=== PATIENT | female | born 1960 | race Caucasian/White ===

== ENCOUNTER 2022-06-07 15:15 | Emergency (ER) | payer OTHER, SELFPAY ==
[2022-06-07 15:28] VITALS: BP 142/77; PULSE 80; RESP 16; TEMP 36.7; O2SAT 97
--- NOTE | 2022-06-07 15:45 | ED.ALLEREA ---
HPI - Allergic Reaction General Chief complaint: Abdominal Pain Stated complaint: Rash/Abdominal Pain/Nausea Time Seen by Provider: 06/07/22 15:45 Source: patient and RN notes reviewed Mode of arrival: ambulatory Limitations: no limitations History of Present Illness HPI narrative: 61-year-old female presented for complaint of itching over body surface without a rash. Denies changes to lotion, soap, detergent etc. She endorses 1 week ago she started with nausea, vomiting, and epigastric pain. She states this improved and then 3 days ago similar symptoms started again. She has not had any vomiting for 24 hours. She endorses epigastric pain is about a 2 out of 10. Tolerating PO. She denies cough, shortness of breath, fevers or chills. She took a negative home COVID test 2 days ago. Denies sick contacts. Related Data Home Medications Medication Instructions Recorded Confirmed albuterol sulfate 90 mcg/actuation 2 puff inhalation Q4-6H PRN 06/07/22 06/07/22 aerosol inhaler Shortness Of Breath Or Wheezing amlodipine 10 mg tablet 10 mg PO DAILY 06/07/22 06/07/22 buspirone 15 mg tablet 15 mg PO BID 06/07/22 06/07/22 citalopram 40 mg tablet 40 mg PO DAILY 06/07/22 06/07/22 fluticasone propionate 100 2 inh inhalation DAILY 06/07/22 06/07/22 mcg/actuation blister powder for inhalation (Flovent Diskus) hydroxyzine HCl 25 mg tablet 25 mg PO DAILY 06/07/22 06/07/22 lisinopril 40 mg tablet 40 mg PO DAILY 06/07/22 06/07/22 metoprolol tartrate 50 mg tablet 50 mg PO BID 06/07/22 06/07/22 Allergies Allergy/AdvReac Type Severity Reaction Status Date / Time No Known Allergies Allergy Verified 06/07/22 15:43 Review of Systems Review of Systems: CONSTITUTIONAL: Denies body aches, fever, chills ENT: Denies rhinorrhea, congestion CARDIOVASCULAR: Denies chest pain, palpitations, or edema. RESPIRATORY: Denies cough or dyspnea. GASTROINTESTINAL: Endorses abdominal pain, Denies nausea, vomiting, diarrhea, hematochezia, melena, hematemesis GENITOURINARY: Denies dysuria, hematuria, or CVA tenderness. SKIN: Denies rash, reports itching MUSCULOSKELETAL: Denies back pain, joint pain, or myalgia. NEUROLOGIC: Denies headache, numbness, tingling, or weakness. All systems reviewed & are unremarkable except as noted in HPI and below PMFSH Comments At time of signature, I have reviewed and agree with nursing past medical, surgical, social and family history unless otherwise noted. Please see nursing chart for further information. There is no relevant family history pertinent to the presenting complaint Exam Narrative: GENERAL: Well-appearing, and in no acute distress. EYES: EOMI. Conjunctivae normal. ENT: Mucous membranes pink and moist. CHEST: Clear to auscultation. HEART: Regular rate and rhythm. No murmur appreciated. Normal peripheral pulses. ABDOMEN: abd soft, nondistended, normal active bowel sounds. Tender to epigastric area with palpation; No guarding, rebound tenderness, asymmetry EXTREMITIES: Normal range of motion. No edema. SKIN: Warm, dry, no rash. Petechiae noted to bilateral arms and neck consistent with scratching. Capillary refill normal. NEURO: Alert and oriented x3. PSYCH: Normal affect. Course Course Emergency Course: Patient is aware of diagnosis, understands and agrees to treatment plan. Anticipatory guidance given. Patient agrees to follow-up as directed and is aware of reasons to seek care at the emergency department. Portions of this record may have been created with voice recognition software Level of Care: Express Care Visit Vital Signs Vital signs: Vital Signs Temperature 98.1 F 06/07/22 15:28 Pulse Rate 80 06/07/22 15:28 Respiratory Rate 16 06/07/22 15:28 Blood Pressure 142/77 H 06/07/22 15:28 Pulse Oximetry 97 06/07/22 15:28 Oxygen Delivery Room Air 06/07/22 15:28 Temperature 98.1 F 06/07/22 15:28 Pulse Rate 80 06/07/22 15:28 Respiratory Rate 16 05/25
== END 2022-06-07 16:00 | disposition home or self-care (01) ==
PROVIDERS: Emergency Provider Nurse Practitioner Family; PCP Family Medicine
DX: L29.9 Pruritus, unspecified (principal); R10.13 Epigastric pain
CPT/HCPCS: 99203; G0463

== ENCOUNTER 2025-06-01 13:43 | Emergency (ER) | payer OTHER, SELFPAY ==
[2025-06-01 13:45] VITALS: BP 165/86; PULSE 128; RESP 20; TEMP 36.4; O2SAT 97
--- NOTE | 2025-06-01 13:51 | ED.SKABFB ---
HPI - Skin/Abscess/Foreign Bdy General Chief complaint: Skin/Abscess/Foreign Body Stated complaint: Rash Time Seen by Provider: 06/01/25 13:51 Source: patient, RN notes reviewed and old records reviewed Mode of arrival: ambulatory Limitations: no limitations History of Present Illness HPI narrative: 64 year olf female presents to [facility] care with complaints of generalized rash for the past 2 days with increased itching. Family reports that patient has had rash for about a month and patient does have hydroxyzine from [facility] in April for urticaria rash, Patient reports that she has history of psoriasis. Rash areas noted on arms and legs mainly with some healing sores on forearms noted from scratching, Patient reports no new soaps, medications, foods, or laundry products. Patient is poor historian.Patient reports that she has taken Zyrtec, Pepcid, and Hydroxyzine. MD complaint: rash Onset (ago): day(s) (increased symptoms reported for 2 days) Location: generalized Severity: moderate Quality: pruritic Treatments prior to arrival: other (zyrtec, Pepcid taken daily and some hydrozyzine) Related Data Home Medications ?Medication ?Instructions ?Recorded ?Confirmed ?Last Taken ?Type albuterol sulfate 90 mcg/actuation 2 puff inhalation Q4-6H PRN 06/07/22 06/07/22 Unknown History aerosol inhaler Shortness Of Breath Or Wheezing amlodipine 10 mg tablet 10 mg PO DAILY 06/07/22 06/07/22 Unknown History buspirone 15 mg tablet 15 mg PO BID 06/07/22 06/07/22 Unknown History citalopram 40 mg tablet 40 mg PO DAILY 06/07/22 06/07/22 Unknown History fluticasone propionate 100 2 inh inhalation DAILY 06/07/22 06/07/22 Unknown History mcg/actuation blister powder for inhalation (Flovent Diskus) hydroxyzine HCl 25 mg tablet 25 mg PO DAILY 06/07/22 06/07/22 Unknown History lisinopril 40 mg tablet 40 mg PO DAILY 06/07/22 06/07/22 Unknown History citalopram 20 mg tablet mg 06/01/25 Unknown History rosuvastatin 10 mg tablet mg 06/01/25 Unknown History Allergies Allergy/AdvReac Type Severity Reaction Status Date / Time No Known Allergies Allergy Verified 06/01/25 13:44 Review of Systems Review of Systems: CONSTITUTIONAL: Denies fever, chills, or sweats. CARDIOVASCULAR: Denies chest pain, palpitations, or edema. RESPIRATORY: Denies cough or dyspnea.reports no increased respiratory difficulty or any difficulty swallowing SKIN: Reports generalized rash which is itchy, mainly noted on arms and legs with some healing sores on forearms from scratching MUSCULOSKELETAL: Denies joint pain or myalgia. NEUROLOGIC: Denies headache, numbness, or weakness. All systems reviewed & are unremarkable except as noted in HPI and below PMFSH Past Medical History Medical History (Updated 06/02/25 @ 10:55 by Amy Soares NP) GERD (gastroesophageal reflux disease) Psoriasis Anxiety and depression Elevated cholesterol Hypertension Social History Social History (Updated 06/02/25 @ 10:42 by Amy Soares NP) Smoking status: Former smoker Alcohol intake: unknown Substance use: unknown Living arrangements: with family Gender identity (if verbalized by the patient): Female Comments At time of signature, agree with nursing past medical, surgical, social and family history. There is no relevant family history pertinent to the presenting complaint Exam Narrative: GENERAL: Well-appearing, well-nourished, and in no acute distress. HEAD: Normocephalic, atraumatic. EYES: PERRLA, conjunctivae clear, and EOMI. ENT: Mucous membranes moist. Oropharynx without edema, erythema or lesions. NECK: Supple. No lymphadenopathy CHEST: Clear to auscultation. No respiratory distress. no acute cough or tachypnea SAO2 97% on room air HEART: Regular rate and rhythm some tachycardia noted regular with no chest pain or pressure reported SKIN: Warm, dry.? Patches of raised erythema which is pruritic, noted especially on lower legs and arms with healing areas on arms from scratching, no linear areas no rash noted to hands or between fingers. NEURO:? Alert and oriented x3. PSYCH: Normal mood and affect anxious Course Course Emergency Course: Patient is aware of diagnosis, understands and agrees to treatment plan.? Anticipatory guidance given.? Patient agrees to follow-up as directed and is aware of reasons to seek care at the emergency department. Portions of this record may have been created with voice recognition software Level of Care: Express Care Visit Vital Signs Vital signs: Vital Signs Temperature 36.4 C L 06/01/25 13:45 Pulse Rate 128 H 06/01/25 13:45 Respiratory Rate 20 06/01/25 13:45 Blood Pressure 165/86 H 06/01/25 13:45 Pulse Oximetry 97 06/01/25 13:45 Oxygen Delivery Room Air 06/01/25 13:45 Temperature 36.4 C L 06/01/25 13:45 Pulse Rate 128 H 06/01/25 13:45 Respiratory Rate 20 06/01/25 13:45 Blood Pressure 165/86 H 06/01/25 13:45 Pulse Oximetry 97 06/01/25 13:45 Oxygen Delivery Room Air 06/01/25 13:45 Reviewed MDM - Skin/Abscess/Foreign Bdy MDM Narrative Medical decision making narrative: Does not appear at this time to be erythema multiforme, bullous, SJS, TEN; no evidence at this time to suggest RMSF, endocarditis or Lyme disease; patient looks well, nontoxic and is tolerating oral intake; no neurologic signs or symptoms; no headache, photophobia or neck pain; afebrile; appropriate for initial outpatient treatment; discussed the importance of follow-up, patient agrees; question, viral exanthema, contact dermatitis, allergic dermatitis, eczema, urticaria. No soft palate or uvula edema, no tongue, lip edema or other mucosal involvement, no respiratory compromise, no stridor, no wheezing, no wheezing, no history of syncope, no hypotension, no nausea, vomiting, or diarrhea.? Instructed patient to go to nearest ER immediately for any worsening symptoms including but not limited to: fever, spreading rash, pain, sore throat, headache, dizziness, chest pain, trouble breathing, or any symptoms concerning to the patient. Differential Diagnosis Differential diagnosis: Likely urticaria, eczema, contact dermatitis and other (psoriasis) Medical Records Attestation: I reviewed the patient's medical records. Critical Care Time Critical Care Time Critical Care Time: No Discharge Plan Discharge Clinical Impression: Contact dermatitis Qualifiers: Contact dermatitis type: unspecified Contact dermatitis trigger: unspecified trigger Qualified Code(s): L25.9 - Unspecified contact dermatitis, unspecified cause Patient Disposition: Home Condition: Stable Instructions: Dermatitis (ED) Additional Instructions: cleanse skin twice daily with liquid dial soap no hot showers apply clotrimazole ointment to rash 2X daily never apply to face watch for any increasing infection--redness, swelling, drainage Zyrtec daily and continue your Pepcid as ordered by Dr Szymanski follow up with PCP in 7-10 days for a wound check recheck if develop fever, chills, increasing symptom Go to the ER if your symptoms become worse of if ANY new symptoms develop If your symptoms persist, change or worsen significantly before you can contact your personal physician then please, without delay, go to the emergency department for further evaluation. Follow-up with PCP in 7-10 days or sooner if needed Follow up with PCP soon in regards to your blood pressure which is elevated above threshold for referral. Blood pressure above 120/80 may indicate pre-hypertension.165/86 Prednisone taper take as prescribed Patient Language: Lao Prescriptions: New prednisone 10 mg tablet 10 mg PO DIRECTED Qty: 21 0RF Rx Instructions: see taper instructions 6 tabs day 1, 5 tabs day 2, 4 tabs day 3, 3 tabs day 4, 2 tabs day 5,1 tab day 6 cetirizine [Zyrtec] 10 mg tablet 10 mg PO DAILY Qty: 30 0RF triamcinolone acetonide 0.1 % ointment 1 applic topical BID Qty: 80 0RF Rx Instructions: never apply this to the face No Action Flovent Diskus 100 mcg/actuation blister with device 2 inh INHALATION DAILY hydroxyzine HCl 25 mg tablet 25 mg PO DAILY citalopram 40 mg tablet 40 mg PO DAILY albuterol sulfate 90 mcg/actuation HFA aerosol inhaler 2 puff INHALATION Q4-6H PRN (Reason: Shortness Of Breath Or Wheezing) amlodipine 10 mg tablet 10 mg PO DAILY lisinopril 40 mg tablet 40 mg PO DAILY buspirone 15 mg tablet 15 mg PO BID famotidine [Pepcid] 40 mg tablet 40 mg PO DAILY Qty: 10 0RF citalopram 20 mg tablet rosuvastatin 10 mg tablet Follow-up/Referrals: Stephon,Reinaldo Stuart MD [Primary Care Provider] Time of Disposition: 14:12 Quality [place] Coma Scale Eyes: Open Verbal: Oriented and Alert Motor: Follows Commands [place] Coma Total Score: 15
== END 2025-06-01 14:26 | disposition home or self-care (01) ==
PROVIDERS: Emergency Provider Registered Nurse; PCP Family Medicine
DX: L25.9 Unspecified contact dermatitis, unspecified cause (principal); Z87.891 Personal history of nicotine dependence; I10 Essential (primary) hypertension; E78.00 Pure hypercholesterolemia, unspecified; K21.9 Gastro-esophageal reflux disease without esophagitis; L40.9 Psoriasis, unspecified; F41.9 Anxiety disorder, unspecified; F32.A Depression, unspecified
CPT/HCPCS: 99213; G0463